=== PATIENT | male | born 1940 | race Caucasian/White ===

== ENCOUNTER 2022-03-19 09:27 | Emergency (ER) | payer MEDICARE, OTHER, SELFPAY ==
[2022-03-19 10:01] VITALS: BMI 25.0
[2022-03-19 10:06] VITALS: BP 149/74; PULSE 55; RESP 17; TEMP 36.4; O2SAT 95
--- NOTE | 2022-03-19 10:49 | ED_ITS ---
HPI - Dizziness General: Chief Complaint: Dizziness Stated Complaint: Unable to use the restroom, BP issues Time Seen by Provider: 03/19/22 10:37 Source: patient Mode of arrival: ambulatory Limitations: no limitations History of Present Illness: HPI Narrative: 81-year-old male presents emergency room unable to urinate. He has had it for the last 12 to 15 hours. No fever sweats chills he has noted he gets lightheaded and dizzy when he first stands. Denies chest pain or shortness of breath. Patient has been having diarrhea. MD elicited complaint: dizziness and lightheadedness Timing: gradual onset Severity: moderate Description: off-balance Context: change in body position History of similar symptoms: Yes Exacerbating factors: change in body position Relieving factors: remaining still and rest Associated symptoms: Reports malaise; Denies change in hearing, chest pain, chills, cough, diaphoresis, ear discharge, ear pressure, fevers/chills, headache(s), nausea, nasal congestion, palpitations, rash, short of breath, syncope, tinnitus, vomiting or weakness Associated neuro symptoms: Deny confusion, difficulty speaking, dysphagia, diplopia, extremity weakness, facial numbness, facial weakness, gait changes, numbness in extremities or visual changes Review of Systems Const: Reports: malaise; Denies: fever(s), chills, fatigue or diaphoresis ENMT: Denies: ear discharge, change in hearing, tinnitus or nasal congestion Card: Denies: chest pain, palpitations or syncope Resp: Denies: dyspnea, productive cough or non-productive cough GI: Reports: abdominal pain, bloating and GI cramping; Denies: nausea, vomiting, hematemesis, dysphagia, diarrhea or constipation : Reports: difficulty urinating; Denies: flank pain, dysuria, urinary frequency or urinary urgency Skin/Breast: Denies: rash or pruritus Neuro: Denies: headache(s), numbness in extremities or confusion PFS ED PFSH: Medical History (Updated 03/29/22 @ 10:50 by Everardo Yepez DO) BPH (benign prostatic hyperplasia) Hypertension Course Vital Signs: Vital signs: Vital Signs Temperature 97.6 F 03/19/22 10:06 Pulse Rate 77 03/19/22 14:02 Respiratory Rate 16 03/19/22 14:02 Blood Pressure 145/78 03/19/22 14:02 Pulse Oximetry 98 03/19/22 14:02 Oxygen Delivery Me thod 03/19/22 10:06 MDM - Dizziness Medical Decision Making Labs and imaging reviewed mild acute kidney injury stool cultures to be done. Fluids given patient does have mildly elevated blood pressure start on low-dose amlodipine follow-up with primary care for stool cultures and for blood pressure and kidney function. Medical Records I reviewed the patient's medical records. Lab Data I reviewed the patient's lab results. : 03/19/22 13:05 03/19/22 12:28 Laboratory Results WBC 7.1 10^3/uL (4.0-10.0) 03/19/22 13:05 Corrected WBC Cancelled 03/19/22 12:28 RBC 5.18 10^6/uL (4.1-5.3) 03/19/22 13:05 Hgb 15.9 g/dL (11.7-16.6) 03/19/22 13:05 Hct 48.9 % (42.0-52.0) 03/19/22 13:05 MCV 94.4 fl (80-94) H 03/19/22 13:05 MCH 30.7 pg (28.0-34.0) 03/19/22 13:05 MCHC 32.5 g/dL (30.0-36.0) 03/19/22 13:05 RDW 12.8 % (12.1-15.1) 03/19/22 13:05 Plt Count 275 10^3/cmm (130-400) 03/19/22 13:05 MPV 9.5 fL (7.4-10.4) 03/19/22 13:05 Gran % Cancelled 03/19/22 12:28 Neut % (Auto) 70.4 % 03/19/22 13:05 Lymph % (Auto) 16.7 % 03/19/22 13:05 Bartholomew % (Auto) 10.0 % 03/19/22 13:05 Eos % (Auto) 1.4 % 03/19/22 13:05 Baso % (Auto) 1.1 % 03/19/22 13:05 Neut # (Auto) 5.00 10^3/uL (1.8-7.7) 03/19/22 13:05 Lymph # (Auto) 1.2 10^3/uL (0.8-4.8) 03/19/22 13:05 Bartholomew # (Auto) 0.7 10^3/uL (0.2-0.9) 03/19/22 13:05 Eos # (Auto) 0.1 10^3/uL (0.0-0.8) 03/19/22 13:05 Baso # (Auto) 0.1 10^3/uL (0.0-0.1) 03/19/22 13:05 Absolute Gran (auto) Cancelled 03/19/22 12:28 Nucleated RBC % (auto) 0 % 03/19/22 13:05 Nucleated RBCs # 0.0 /100WBC 03/19/22 13:05 Sodium 137 mmol/L (136-145) 03/19/22 12:28 Potassium 4.9 mmol/L (3.5-5.1) 03/19/22 12:28 Chloride 101 mmol/L (98-107) 03/19/22 12:28 Carbon Dioxide 24 mmol/L (22-29) 03/19/22 12:28 Anion Gap 16.9 (5-19) 03/19/22 12:28 BUN 19 mg/dL (8-23) 03/19/22 12:28 Creatinine 1.8 mg/dL (0.7-1.2) H 03/19/22 12:28 GFR Calculation Not Reportable 03/19/22 12:28 Glucose 116 mg/dL (65-115) H 03/19/22 12:28 Calculated Osmolality 287 mOsm/kg (285-295) 03/19/22 12:28 Calcium 10.0 mg/dL (8.5-10.5) 03/19/22 12:28 Total Bilirubin 0.9 mg/dL (0.15-1.2) 03/19/22 12:28 AST 21 U/L (0-40) 03/19/22 12:28 ALT 34 U/L (0-41) 03/19/22 12:28 Alkaline Phosphatase 78 U/L (40-130) 03/19/22 12:28 Total Protein 7.2 g/dL (6.6-8.7) 03/19/22 12:28 Albumin 4.1 g/dL (3.5-5.2) 03/19/22 12:28 Globulin 3.1 g/dL (1.3-4.6) 03/19/22 12:28 Urine Color Yellow (Yellow) 03/19/22 11:22 Urine Appearance Clear (CLEAR) 03/19/22 11:22 Urine pH 8.5 (5-7) A 03/19/22 11:22 Ur Specific [place] 1.020 (1.005-1.030) 03/19/22 11:22 Urine Protein 2+ 03/19/22 11:22 Urine Glucose (UA) Negative (Normal) 03/19/22 11:22 Urine Ketones Negative (Negative) 03/19/22 11:22 Urine Blood Negative (Negative) 03/19/22 11: Urine Nitrate Negative 03/19/22 11:22 Urine Bilirubin Negative (Negative) 03/19/22 11:22 Urine Urobilinogen 0.2 mg/dL (Negative) 03/19/22 11:22 Ur Leukocyte Esterase Negative (Negative) 03/19/22 11:22 Urine RBC None /hpf (0-2) 03/19/22 11:22 Urine WBC None /hpf (0-5) 03/19/22 11:22 Ur Squamous Epith Cells None /hpf (0-5) 03/19/22 11:22 Amorphous Sediment 2+ /hpf 03/19/22 11:22 Urine Bacteria t /hpf (NONE) 03/19/22 11:22 Discharge Plan Discharge Patient Disposition: Home Clinical Impression: HTN (hypertension), Diarrhea Condition: Stable Prescriptions: New amlodipine 2.5 mg tablet 2.5 mg PO DAILY Qty: 30 0RF Discharge Orders: Discharge ED (Routine); Ordered 03/19/22 Ordered By: Everardo Yepez Referrals: Kelvin Lama [Primary Care Provider] - Patient Instructions: Opioid Safety, Pain Management Activity Restrictions/Additional Instructions: Start amlodipine once daily. rehab department manager will call make arrangements for you to follow-up with general surgery. Coding Level of Care Code ED Bell Attendant for [facility] a[facility]le
[2022-03-19 11:29] LABS: Bilirubin Urine Negative (Negative); Blood Urine Negative (Negative); Glucose Urine UA Negative (Normal); Ketones Urine Negative (Negative); Leukocyte Esterase Urine Negative (Negative); Nitrate Urine Negative; Protein Urine 2+; Urine Appearance Clear (CLEAR); Urine Color Yellow (Yellow); Urobilinogen Urine 0.2 mg/dL (Negative)
[2022-03-19 11:30] LABS: Add Urine Microscopic? YES
[2022-03-19 11:33] LABS: pH Urine 8.5 (5-7)
--- NOTE | 2022-03-19 11:42 | ECG_ITS ---
[facility] Test Date: 2022-03-19 Pat Name: Angel Nguyen Department: Room: Gender: Male [employer]ger: : 1940 Requested By: Everardo Fajardo Order Number: [id number] Jose Cruz MD: Carter Law M.D. Measurements Intervals [place] Rate: 71 P: 37 AL: 212 QRS: -14 QRSD: 106 T: 31 QT: 358 QTc: 389 Interpretive Statements SINUS RHYTHM WITH FIRST DEGREE AV BLOCK MODERATE VOLTAGE CRITERIA FOR LVH, CONSIDER NORMAL VARIANT [MEETS CRITERIA IN ONE OF: R(aVL), S(V1), R(V5), R(V5/V6)+S(V1)] No previous ECG available for comparison Electronically Signed On 03-20-2022 22:03:07 CDT by Carter Law M.D. [email or web address]
[2022-03-19 11:49] LABS: Add Urine Culture? No; Amorphous Sediment Urine 2+ /hpf; Bacteria Urine t /hpf
[2022-03-19 11:54] VITALS: BP 145/78; BP 155/83; BP 165/70; PULSE 62; PULSE 70; PULSE 72
[2022-03-19 12:06] VITALS: BP 160/82
[2022-03-19 12:36] VITALS: BP 168/89
[2022-03-19 12:55] LABS: Alanine Aminotransferase 34 U/L (0-41); Albumin Level 4.1 g/dL (3.5-5.2); Alkaline Phosphatase 78 U/L (40-130); Aspartate Amino Transferase 21 U/L (0-40); Blood Urea Nitrogen 19 mg/dL (8-23); Carbon Dioxide 24 mmol/L (22-29); Chloride 101 mmol/L (98-107); Globulin 3.1 g/dL (1.3-4.6); Glucose 116 mg/dL (65-115); Osmolality Calculated 287 mOsm/kg (285-295); Sodium 137 mmol/L (136-145); Total Bilirubin 0.9 mg/dL (0.15-1.2); Total Protein 7.2 g/dL (6.6-8.7)
[2022-03-19 12:56] LABS: Anion Gap 16.9 (5-19)
[2022-03-19 12:57] LABS: Potassium 4.9 mmol/L (3.5-5.1)
[2022-03-19 13:23] LABS: Basophils # 0.1 10^3/uL (0.0-0.1); Basophils % 1.1 %; Eosinophils # 0.1 10^3/uL (0.0-0.8); Eosinophils % 1.4 %; Hematocrit 48.9 % (42.0-52.0); Hemoglobin 15.9 g/dL (11.7-16.6); Lymphocytes # 1.2 10^3/uL (0.8-4.8); Lymphocytes % 16.7 %; Mean Corpuscular HGB Conc 32.5 g/dL (30.0-36.0); Mean Corpuscular Hemoglobin 30.7 pg (28.0-34.0); Mean Corpuscular Volume 94.4 fl (80-94); Mean Platelet Volume 9.5 fL (7.4-10.4); Monocytes # 0.7 10^3/uL (0.2-0.9); Neutrophils % 70.4 %; Nucleated Red Blood Cells % 0 %; Platelet Count 275 10^3/cmm (130-400); Red Blood Count 5.18 10^6/uL (4.1-5.3); Red Cell Distribution Width 12.8 % (12.1-15.1); White Blood Count 7.1 10^3/uL (4.0-10.0)
[2022-03-19 13:34] VITALS: BP 143/72; PULSE 77; RESP 16; O2SAT 98
[2022-03-19 14:02] VITALS: BP 145/78; PULSE 77; RESP 16; O2SAT 98
--- NOTE | 2022-03-21 13:27 | DCPLANNER ---
Addendum entered by Layne Lemus 03/25/22 13:44: health center manager received the following message from the general surgery clinic regarding follow up appointment: Spoke with patient's who stated patient's PCP made him one in [facility].. Referral here is not needed On 03/22/22 @ 10:27 Shama Henson Wrote To [employer] Front Off no answer [facility] 03/22 Original Note: health center manager had message to schedule a follow up appointment for patient with general surgery. health center manager sent patients information to the front office staff at general surgery. Patients information will be printed and reviewed. Clinic will call patient with appointment information.
== END 2022-03-19 14:05 | disposition home or self-care (01) ==
PROVIDERS: Emergency Provider Family Medicine; PCP Family Medicine
DX: I10 Essential (primary) hypertension (principal); R19.7 Diarrhea, unspecified
CPT/HCPCS: 80053; 81001; 85025; 87493; 87506; 93005; 99284